=== PATIENT | male | born 1995 | race Caucasian/White ===

== ENCOUNTER 2016-12-16 18:40 | Emergency (ER) | payer OTHER ==
[2016-12-16 18:45] VITALS: BP 147/98
[2016-12-16] MEDS ORDERED: HYDROmorphone INJ* 1 MG/ML CARPUJECT SYRINGE IV ONE (18:54)
[2016-12-16] MEDS ORDERED: Ondansetron INJ* 2 MG/ML VIAL IV ONE (18:54)
--- NOTE | 2016-12-16 19:38 | RAD ---
INDICATION: Shoulder dislocation COMPARISON: None TECHNIQUE: AP and lateral were obtained. FINDINGS: There is anterior dislocation. There is no associated fracture identified on the prereduction images. No additional significant findings. IMPRESSION: ANTERIOR DISLOCATION.
[2016-12-16] MEDS ORDERED: Midazolam* 1 MG/ML 10 ML VIAL (10 MG) ONE (21:34)
[2016-12-16] MEDS ORDERED: Flumazenil* 0.1 MG/ML 5 ML MDV ONE (21:34)
[2016-12-16] MEDS ORDERED: fentaNYL* 50 MCG/ML 2 ML VIAL (100 MCG VIAL) ONE (21:34)
[2016-12-16] MEDS ORDERED: Naloxone* 0.4 MG/ML 1 ML VIAL ONE (21:34)
[2016-12-16] MEDS ORDERED: HYDROcodone/ACETAMIN 5-325 MG* 1 TAB PO ONE (22:23)
--- NOTE | 2016-12-16 22:32 | RAD ---
INDICATION: Postreduction COMPARISON: 12/16/2016 TECHNIQUE: AP and lateral views were obtained. FINDINGS: There is satisfactory reduction. No underlying fracture is seen. IMPRESSION: SATISFACTORY REDUCTION.
--- NOTE | 2016-12-16 23:38 | ED ---
Amado Uriarte Billy, scribed for Errol Cheung MD on 12/16/16 at 1900 . Upper Extremity Pain - HPI Summary HPI Summary: Patient is a 21 year-old male coming to [facility] with constant, moderate, left shoulder pain and deformity. He states that his symptoms began suddenly at 1820 tonight while lifting weights. His symptoms are consistent with a previous left shoulder dislocation 2 years ago. He has no other complaints. - History of Current Complaint Chief Complaint: EDExtremityUpper Stated Complaint: DISLOCATED LEFT SHOULDER Time Seen by Provider: 12/16/16 18:45 Hx Obtained From: Patient Onset/Duration: Started Minutes Ago Timing: Constant Severity Initially: Moderate Severity Currently: Moderate Pain Location: Shoulder Aggravating Factor(s): Movement Alleviating Factor(s): Nothing Associated Signs & Symptoms: Positive: Other - deformity - Allergies/Home Medications Allergies/Adverse Reactions: Allergies Allergy/AdvReac Type Severity Reaction Status Date / Time Sulfa Antibiotics Allergy Unknown Verified 12/16/16 18:45 Reaction Details PMH/Surg Hx/FS Hx/Imm Hx Endocrine/Hematology History: Denies: Hx Diabetes Musculoskeletal History: Reports: Other Musculoskeletal History - previous shoulder dislocation 2013 Infectious Disease History: No Infectious Disease History: Denies: Traveled Outside the [place] in Last 30 Days - Family History Known Family History: Positive: Respiratory Disease - asthma - Social History Alcohol Use: Weekly Substance Use Type: Reports: Marijuana Smoking Status (MU): Light Every Day Tobacco Smoker Review of Systems Negative: Fever Positive: Arthralgia - left shoulder All Other Systems Reviewed And Are Negative: Yes Physical Exam Triage Information Reviewed: Yes Vital Signs On Initial Exam: Initial Vitals Temp Pulse Resp BP Pulse Ox 97 F 71 17 147/98 97 12/16/16 18:43 12/16/16 18:43 12/16/16 18:43 12/16/16 18:43 12/16/16 18:43 Vital Signs Reviewed: Yes Appearance: Positive: Well-Appearing, No Pain Distress Skin: Positive: Warm, Skin Color Reflects Adequate Perfusion, Dry Head/Face: Positive: Normal Head/Face Inspection Eyes: Positive: Normal Neck: Positive: Supple, Nontender Respiratory/Lung Sounds: Positive: Clear to Auscultation, Breath Sounds Present Cardiovascular: Positive: RRR, Pulses are Symmetrical in both Upper and Lower Extremities - NV intact distally Abdomen Description: Positive: Nontender, Soft Musculoskeletal: Positive: Abnormal @ - left shoulder deformity consistent with anterior dislocation, Pain @ - left shoulder Neurological: Positive: Normal, Sensory/Motor Intact - intact sensation over the left deltoid Psychiatric: Positive: Affect/Mood Appropriate AVPU Assessment: Alert - [place] Coma Scale Coma Scale Total: 15 Procedures - Joint Reduction Joint Reduction Site: shoulder (L) Conscious Sedation: No Pre-Procedure NV Exam: Yes - NV intact Post Joint Reduction Film: joint reduced Diagnostics - Vital Signs Vital Signs Temp Pulse Resp BP Pulse Ox 12/16/16 18:43 97 F 71 17 147/98 97 - Laboratory Lab Statement: Any lab studies that have been ordered have been reviewed, and results considered in the medical decision making process. - Radiology L Shoulder x-ray Radiology Interpretation Completed By: Radiologist - anterior dislocation L Shoulder x-ray (post-reduction) Radiology Interpretation Completed By: Radiologist - Satisfactory reduction. Course/Dx - Course Course Of Treatment: Albert Grey presented with an anterior shoulder dislocation with N/V/M intact. He was reduced using traction/countertraction under moderate coonscious sedation easily. He tolerated the procedure well and was placed in an immobilizer, given pain meds and will F/U with ortho. - Diagnoses Provider Diagnoses: Dislocation of left shoulder joint Discharge - Discharge Plan Condition: Stable Disposition: HOME Prescriptions: HYDROcodone/ACETAMIN 5-325 MG* [[place] 5-325 TAB*] 1 tab PO Q6H PRN #20 tab MDD 4 PRN Reason: Pain Patient Education Materials: Shoulder Dislocation (ED) Referrals: Nasreen Martin MD [Medical Doctor] - Additional Instructions: FOLLOW UP WITH DR. MARTIN (ORTHOPEDICS). The documentation as recorded by the Amado malik Billy accurately reflects the service I personally performed and the decisions made by , Errol Cheung MD.
== END 2016-12-16 23:26 | disposition home or self-care (01) ==
LOC: ED 18:40
DX: S43.005A Unspecified dislocation of left shoulder joint, initial encounter (principal); Z72.0 Tobacco use; Z88.2 Allergy status to sulfonamides; X58.XXXA Exposure to other specified factors, initial encounter; Y93.B3 Activity, free weights; Y92.9 Unspecified place or not applicable
CPT/HCPCS: 23650; 96374; 96375; 99285; J1170; J2250; J2310; J2405; J3010